=== PATIENT | female | born 1995 | race Caucasian/White ===

== ENCOUNTER 2021-06-06 22:13 | Emergency (ER) | payer MEDICAID, OTHER ==
[~2021-06-06] VITALS: Ht 160 cm; Wt 72.6 kg
[2021-06-06 22:50] VITALS: BP 148/83
--- NOTE | 2021-06-06 23:25 | NUR ---
PATIENT AMBULATED TO CHAIR C
--- NOTE | 2021-06-06 23:30 | NUR ---
MEDICATED DIRECTED BY [facility]
[2021-06-06] MEDS: SUMAtriptan succinate 50 MG TAB PO ONE (23:31)
[2021-06-06] MEDS: ACETAMINOPHEN EXTRA STRENGTH 500 MG TAB PO ONE (23:31)
[2021-06-06] MEDS: METOCLOPRAMIDE 10 MG TAB PO ONE (23:31)
--- NOTE | 2021-06-07 00:15 | NUR ---
TO ER BED 4
--- NOTE | 2021-06-07 00:17 | NUR ---
26 Y/O FEMALE PT CAME TO THE ED C/O HEADACHE X 2 WEEKS. PT STATES, "I'VE BEEN HAVING HEADACHES X 2 WEEKS NOW AND I'M CURRENTLY 4 WEEKS ." DENIES N/V/D; SKIN IS PINK/WARM/DRY; AAOX4 WITH EVEN AND STEADY GAIT; LUNGS CLEAR BL; HR EVEN AND REGULAR; PT DENIES ANY FEVER, CP, SOB, OR COUGH AT THIS TIME; PATIENT STATES PAIN OF 7/10 AT THIS TIME; VSS; PATIENT POSITIONED FOR COMFORT; HOB ELEVATED; BEDRAILS UP X2; BED DOWN. ER MD MADE AWARE OF PT STATUS. NKA PMH: DENIES
[2021-06-07] MEDS: NACL 0.9% 1,000 ML IV ONE (00:37)
[2021-06-07] MEDS: METOCLOPRAMIDE 10 MG/2 ML INJ VIAL IVP ONE (00:43)
[2021-06-07] MEDS ORDERED: IMI50 PO (01:16)
[2021-06-07] MEDS ORDERED: METO-486 PO (01:16)
[2021-06-07 01:27] VITALS: BP 138/85
--- NOTE | 2021-06-07 01:28 | NUR ---
Patient discharged with v/s stable. Written and verbal after care instructions given and explained. Patient alert, oriented and verbalized understanding of instructions. Ambulatory with steady gait. All questions addressed prior to discharge. ID band removed. Patient advised to follow up with PMD. Rx of IMITREX AND REGLAN given. Patient educated on indication of medication including possible reaction and side effects. Opportunity to ask questions provided and answered.
== END 2021-06-07 01:28 | disposition home or self-care (01) ==
LOC: MED 22:13
DX: O26.891 Other specified pregnancy related conditions, first trimester (principal); G43.909 Migraine, unspecified, not intractable, without status migrainosus; Z3A.01 Less than 8 weeks gestation of pregnancy; Z88.5 Allergy status to narcotic agent
CPT/HCPCS: 81025; 96374; 99284; J2765; J8597; Q0163

== ENCOUNTER 2021-06-20 16:29 | Emergency (ER) | payer MEDICAID ==
[~2021-06-20] VITALS: Ht 160 cm; Wt 70.0 kg
[~2021-06-20 16:29] MED LIST: IMI50 PO; METO-486 PO
[2021-06-20 17:16] VITALS: BP 125/67
[2021-06-20 17:46] LABS: APPEARANCE,URINE CLEAR (CLEAR); BILIRUBIN,URINE NEGATIVE (NEGATIVE); BLOOD, URINE 1+ (NEGATIVE); COLOR,URINE YELLOW (YELLOW); LEUKOCYTE ESTERASE ,URINE NEGATIVE (NEGATIVE); NITRITE, URINE NEGATIVE (NEGATIVE); PH,URINE 6.5 (5.0-9.0); UGLUCOSE NEGATIVE (NEGATIVE)
[2021-06-20 18:05] LABS: WBC,URINE 0-5 /HPF (0-5)
[2021-06-20 18:06] LABS: URINE AMORPHOUS URATE 2+ /HPF (None Seen)
[2021-06-20 18:57] LABS: BASOPHILS # (AUTO) 0.1 K/uL (0.00-0.22); EOSINOPHILS # (AUTO) 0.2 K/uL (0-0.4); EOSINOPHILS % (AUTO) 1.7 % (0.0-4.0); HEMATOCRIT 33.4 % (36-48); HEMOGLOBIN 11.1 g/dL (12.0-16.0); LYMPHOCYTES # (AUTO) 2.6 K/uL (2.5-16.5); LYMPHOCYTES % (AUTO) 24.5 % (20.5-51.1); MEAN CORPUSCULAR HEMOGLOBIN 27 pg (27-31); MEAN CORPUSCULAR HGB CONC 33 g/dL (33-37); MONOCYTES # (AUTO) 0.6 K/uL (0.8-1.0); MONOCYTES % (AUTO) 5.6 % (1.7-9.3); NEUTROPHILS # (AUTO) 7.2 K/uL (1.8-7.7); NEUTROPHILS % (AUTO) 67.2 % (42.2-75.2); PLATELET COUNT (AUTO) 249 K/uL (140-450); RED BLOOD CELL COUNT(AUTO) 4.07 MIL/uL (4.20-5.40); RED CELL DISTRIBUTION WIDTH 14.3 % (11.6-13.7); WHITE BLOOD COUNT (AUTO) 10.7 K/uL (4.8-10.8)
[2021-06-20 21:14] VITALS: BP 127/72
--- NOTE | 2021-06-20 21:14 | NUR ---
PT SEEN AND DISCHARGED FROM [facility]
== END 2021-06-20 21:14 | disposition home or self-care (01) ==
LOC: MED 16:29
DX: O20.0 Threatened abortion (principal); Z88.5 Allergy status to narcotic agent; Z88.6 Allergy status to analgesic agent; Z88.8 Allergy status to other drugs, medicaments and biological substances
CPT/HCPCS: 36415; 76817; 81001; 81025; 84702; 85025; 86900; 86901; 99284; Q0092

== ENCOUNTER 2021-06-22 13:38 | Emergency (ER) | payer MEDICAID ==
[~2021-06-22] VITALS: Ht 160 cm; Wt 69.9 kg
[2021-06-22 13:49] VITALS: BP 144/80
--- NOTE | 2021-06-22 13:55 | NUR ---
PT SENT TO LOBBY TO WAIT FOR AVAILABLE BED OR MSE.
[2021-06-22 17:13] VITALS: BP 128/85
--- NOTE | 2021-06-22 17:13 | NUR ---
Patient discharged with v/s stable. Written and verbal after care instructions given and explained. Patient verbalized understanding. Ambulatory with steady gait. All questions addressed prior to discharge. Advised to follow up with PMD. Address and phone number given to patient for Dr. Jalloh to follow up and copy of labs and US given.
== END 2021-06-22 17:13 | disposition home or self-care (01) ==
LOC: MED 13:38
DX: O02.1 Missed abortion (principal); Z3A.08 8 weeks gestation of pregnancy; Z88.5 Allergy status to narcotic agent; Z88.6 Allergy status to analgesic agent; Z88.8 Allergy status to other drugs, medicaments and biological substances
CPT/HCPCS: 36415; 76801; 76830; 84702; 99284

== ENCOUNTER 2021-06-28 18:42 | Emergency (ER) | payer MEDICAID ==
[~2021-06-28] VITALS: Ht 160 cm; Wt 69.9 kg
[2021-06-28 19:07] VITALS: BP 140/98
--- NOTE | 2021-06-28 19:10 | NUR ---
PT SENT TO LOBBY
[2021-06-28] MEDS ORDERED: LIDOCAINE MPF 1% 10 MG/ML VIAL INJ ONE (19:25)
[2021-06-28] MEDS ORDERED: BACITRACIN OINT 500 UNITS/GM PKT TP ONE (19:25)
[2021-06-28 20:57] VITALS: BP 140/98
--- NOTE | 2021-06-28 20:58 | NUR ---
Patient discharged with v/s stable. Written and verbal after care instructions given and explained. Patient verbalized understanding. Ambulatory with steady gait. All questions addressed prior to discharge. Advised to follow up with PMD.
== END 2021-06-28 20:57 | disposition home or self-care (01) ==
LOC: MED 18:42
DX: S61.216A Laceration without foreign body of right little finger without damage to nail, initial encounter (principal); Z88.5 Allergy status to narcotic agent; Z88.6 Allergy status to analgesic agent; W26.8XXA Contact with other sharp object(s), not elsewhere classified, initial encounter; Y93.89 Activity, other specified; Y92.89 Other specified places as the place of occurrence of the external cause; Y99.8 Other external cause status
CPT/HCPCS: 12001; 99282; J2001